=== PATIENT | female | born 1965 | race Native Hawaiian/Other Pacific Islander ===

== ENCOUNTER → 2021-02-11 | Outpatient (CLI) | payer BC ==
[~2021-02-11] MED LIST: BUPR150ER PO; CYCL10 PO; LEVSOD50 PO; MORP60ER PO
== END | disposition home or self-care (01) ==
LOC: LAB SHORT 12:32
DX: D48.5 Neoplasm of uncertain behavior of skin (principal)
CPT/HCPCS: 88305